=== PATIENT | male | born 2000 | race Two or more races ===

== ENCOUNTER 2024-05-15 12:24 | Emergency (ER) | payer MEDICAID, OTHER ==
[~2024-05-15] VITALS: Ht 175.3 cm; Wt 84.8 kg
[2024-05-15 13:05] VITALS: BP 146/86; PULSE 86; RESP 18; TEMP 98.1; O2SAT 99
[2024-05-15] MEDS: cefTRIAXone SOD 1,000 MG VL IM ONE (13:28)
[2024-05-15] MEDS: LIDOCAINE 1% HCL (LOCAL ANESTH.) INJ 20ML MDV IJ ONE (13:36)
[2024-05-15] MEDS ORDERED: CIPR-173 PO (13:53)
== END 2024-05-15 13:59 | disposition home or self-care (01) ==
LOC: ER 12:24
DX: S31.21XA Laceration without foreign body of penis, initial encounter (principal); W22.8XXA Striking against or struck by other objects, initial encounter; Y93.89 Activity, other specified; Y92.89 Other specified places as the place of occurrence of the external cause; Y99.8 Other external cause status
CPT/HCPCS: 96372; 99283; J0696; J2001